=== PATIENT | male | born 1975 | race Caucasian/White ===

== ENCOUNTER 2024-09-08 06:38 | Day surgery (SDC) | payer OTHER, SELFPAY ==
--- OUTSIDE RECORDS SUMMARY | 2024-08-15 14:03 | XMS_ITS | Patient Health Record ---
Author Organization [facility] Address [address] [place] [address] Care Team Providers Care College Athlete Name Role Phone CIRA SANDOVAL Primary Care Provider Unav ailable Adonis Hsieh Unavailable [phone] Allergies No Known Allergies Reason For Referral Referring Provider First Name CIRA Referring Provider Last Name YEIMI Referred Organization [facility] Referred Provider Adonis Hsieh Referred Address [address],[place], [place],[address], Referred Provider Specialty Gastroentero logy General Notes Lynn Sumner 024 03:17:45 PM EDT > requested a [facility] referral for visit with Dr. Hsieh on 11-21-[address] Nunez's office Referral Priority Routine Medications Medication SIG (Take, Route, Fr equency, Duration) Notes Start Date End Date Status NovoLOG 100 UNIT/ML Injection for 30 Active Immunizations Vaccine Route Administration Date Status Comme nts Influenza Unknown 05/01/2023 Administered Social History Tobacco Use: Social History Observation Description Date Details (start date - stop date) Never Smoker NA - NA Tobacco Use/Smoking Question Answer Notes Patient is a nonsmoker Alcohol Screen Question Answer Notes Did you have a drink contain ing alcohol in the past year? Yes How often did you have a dri nk containing alcohol in the past year? 2 to 3 times a week (3 points) How many drinks did you have on a typical day when you were drinking in the past year? 1 or 2 drinks (0 point) Points 3 Interpretation Negative Section Notes: Nonsmoker; no sig alcohol Problems Problem Type SNOMED Code ICD Code Onset Dates Problem Status W/U Status Risk Notes Problem Colon cancer screening (729767537) Colon cancer screening (Z12.11) Active confirmed Problem Pre-procedure evaluation check (488247780) Encounter for other preprocedural examination (Z01.818) Active confirmed Vital Signs Temperature 99.3 degrees Fahrenheit 11/21/2023 Blood pressure diastolic 00 mm Hg 11/21/2023 Height 6 ft 1 in in 11/21/2023 Blood pressure systolic 000 mm Hg 11/21/2023 Weight 203 lbs 11/21/2023 BMI 26.78 kg/m2 11/21/2023 Encounters Encounter Location Date Provider Diagnosis [facility] [address] [place] [address] 11/21/2023 Adonis Hsieh Colon cancer screeni ng Z12.11 and Encounter for other preprocedural examination Z01.818 [facility] [address] [place] [address] 03/28/2024 Adonis Hsieh Assessments Encounter Date Diagnosis (ICD Code) Assessment Notes Treatment Notes Treatment Clinical Notes Section Notes 11/21/2023 Colon cancer screening (ICD-10 - Z12.11) Speak with Dr. Mcmillan regarding adjustment of your Insulin for the day before and the day of the procedure Overall, Matthew appears quite well. Given his age and excellent clinical appearance, I did recommend a colonoscopy for screening purposes. We did review the rationale for that regard to colon cancer prevention. Full consent was obtained for this, including risks of bleeding and perforation. The procedure will be done with monitored anesthesia care. I did advise him to speak with his pickling machine operator regarding adjustment of his insulin pump the day before and on the day of the procedure. Matthew was comfortable with this plan. Thank you again for allowing me to participate in Matthew's care. I shall continue to keep you advised of his progress. 11/21/2023 Encounter for other preprocedural examination (ICD-10 - Z01.818) Overall, Matthew appears quite well. Given his age and excellent clinical appearance, I did recommend a colonoscopy for screening purposes. We did review the rationale for that regard to colon cancer prevention. Full consent was obtained for this, including risks of bleeding and perforation. The procedure will be done with monitored anesthesia care. I did advise him to speak with his pickling machine operator regarding adjustment of his insulin pump the day before and on the day of the procedure. Matthew was comfortable with this plan. Thank you again for allowing me to participate in Matthew's care. I shall continue to keep you advised of his progress. Plan Of Treatment Future Test Test Name Order Date COLONOSCOPY 11/21/2023 Next Appt Details Provider Name:Adonis Hsieh , 09/08/2024 07:30:00 AM, [address] [place] [address] , [place], [place], [phone], Insurance Providers Payer Name Payer Address Payer Phone Subscriber Number Group Number Insured Name Patient Relationship to Insured Coverage Start Date Coverage End Date [employer] [id number] [place]LEJANDRA GILLIAM [phone] [id number] MATTHEW SAAVEDRA Self - patient is the insured Medical (General) History Medical History History ICD Code IDDM--has an Insulin pump Denies [place],DM,CVA,Lung disease,renal dise ase Surgical History Surgery Date(Month/Year) vasectomy 2022
--- OUTSIDE RECORDS SUMMARY | 2024-08-15 14:03 | XMS_ITS ---
Author Organization [facility] Address [address] [place] [address] Care Team Providers Care Chief Transfer And Pumphouse Operator Name Role Phone CIRA SANDOVAL Primary Care Provider Unav ailable Adonis Hsieh [phone] REASON FOR VISIT screening Encounters Encounter Location Date Provider Diagnosis [facility] [address] [place] [phone] 04/07/2024 Adonis Hsieh Plan Of Treatment Next Appt Details Provider Name:Adonis German Jori , 09/08/2024 07:30:00 AM, [address] [place] [address], [phone], Progress Notes * ALEXANDRIAREGINA MATTHEWDOB:1975 (49 yo M)Acc No.[id number]:04/07/2024 COLON WITH MAC Patient:?MATTHEW SAAVEDRA Provider:?Adonis Hsieh MD :1975???Age:49 Y???Sex:Male Cuong e:04/07/2024 Address:[address] [place] [address] , [place], [place] Pcp:PATY MOLINA Subjective: * Chief Complaints: * ???1. Screening. * Medical History:? Objective: * Vitals:? Assessment: Plan: * Treatment: * * The named appointment provid er may or may not be the originator of this progress note, and it is not deemed complete until electronically signed by the appointment provider. Sign off status: Pending * Provider:?Adonis Hsieh MD Date:? 024 Generated for Don fernandes/Lane/Louisitting on:?08/15/2024 02:02 PM EDT
--- OUTSIDE RECORDS SUMMARY | 2024-08-15 14:03 | XMS_ITS ---
Author Organization [facility] Address [address] [place] [address] Care Team Providers Care Director Of Catering Sales Name Role Phone CIRA SANDOVAL Primary Care Provider Unav ailable Adonis Hsieh Unavailable [phone] Allergies No Known Allergies REASON FOR VISIT Patient presents today for a COLON SCREENING Medications Medication SIG (Take, Route, Fr equency, Duration) Notes Start Date End Date Status NovoLOG 100 UNIT/ML Injection for 30 Active Social History Tobacco Use: Social History Observation [...] Status Risk Notes Problem Colon cancer screening (316212892) Colon cancer screening (Z12.11) Active confirmed Problem Pre-procedure evaluation check (776385611) Encounter for other preprocedural examination (Z01.818) Active confirmed Vital Signs Temperature 99.3 degrees Fahrenheit 11/21/19 24 Blood pressure systolic 000 mm Hg 11/21/19 24 Blood pressure diastolic 00 mm Hg 024 Height 6 ft 1 in in 11/21/2023 Weight 203 lbs 11/21/2023 BMI 26.78 kg/m2 11/21/2023 Encounters Encounter Location Date Provider Diagnosis [facility] [address] [place] [address] 11/21/2023 Adonis Hsieh Colon cancer screeni ng Z12.11 and Encounter for other preprocedural examination Z01.818 Assessments Encounter Date Diagnosis (ICD Code) Assessment [...] did advise him to speak with his telephone sales agent regarding adjustment of his insulin pump the [...] did advise him to speak with his telephone sales agent regarding adjustment of his insulin pump the day before and on the day of the procedure. Matthew was comfortable with this plan. Thank you again for allowing me to participate in Matthew's care. I shall continue to keep you advised of his progress. Plan Of Treatment Treatment Notes Assessment Notes Colon cancer screening Speak with Dr. Thong barber regarding adjustment of your Insulin for the day before and the day of the procedure Future Test Test Name Order Date COLONOSCOPY 11/21/2023 Next Appt Details Follow Up: prn, Reason: Provider Name:Adonis Hsieh , 09/08/2024 07:30:00 AM, [address] [facility] , [place], [place], [phone], Progress Notes * EHLE, ERICDOB:1975 (48 yo M)Acc No.[id number]:11/21/2023 Progress Notes Patient:MATTHEW CRAIG Provider:?Adonis Hsieh MD :1975???Age:48 Y???Sex:Male Cuong e:11/21/2023 Address:[address] [place] [address] Pcp:PATY MOLINA Subjective: * Chief Complaints: * ???Patient presents today fo r a COLON SCREENING * HPI: ???incontinence:? I saw Matthew in the office today for evaluation of colorectal cancer screening. ?As you know, Matthew is a 48-year-old male who presently feels well. He enjoys a good appetite, without any significant heartburn or dysphagia. His bowel movements have been regular without any hematochezia or melena. He does describe occasional issues with hemorrhoids but not on a frequent nor problematic basis. He denies abdominal pain, jaundice, nor any unintentional weight loss. He denies any known family history of colon cancer. He has never had a colonoscopy. * ROS:?General/Constitutional:?Change in appetite?denies.?Chills?denies.?Fatigue?denies.?Ophthalmologic:?Comments?all negative.?ENT:?Comments?all negative.?Respiratory:?hemoptysis?denies.?Cough?denies.?Cardiovascular:?Chest pain?denies.?Orthopnea?denies.?Gastrointestinal:?Comments?See HPI for details.?Genitourinary:?Hematuria?denies.?Dysuria?denies.?Musculoskeletal:?Painful joints?denies.?Weakness?denies.?Skin:?Itching?denies.?Rash?denies.?Neurologic:?Headache?denies.?Seizures?denies.?Psychiatric:?Comments?all negative.? * Medical History:? * Surgical History:?vasectomy 2022 * Hospitalization/Major Diagno stic Procedure:?No Hospitalization History. * Family History:?Father: samreen trujillo?Mother: alive.? No family history of colon cancer. * Social History:?Tobacco Use:?Tobacco Use/Smoking?Patient is a?nonsmoker.?Drugs/Alcohol:?Alcohol Screen?Did you have a drink containing alcohol in the past year??Yes,?How often did you have a drink containing alcohol in the past year??2 to 3 times a week (3 points),?How many drinks did you have on a typical day when you were drinking in the past year??1 or 2 drinks (0 point),?Points?3,?Interpretation?Negative.?Miscellaneous:?Marital status: . 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 ???Nonsmoker; no sig alcohol. * Medications:?TakingNovoLOG 1 00 UNIT/ML Solution Injection Medication List reviewed and reconciled with the patientTaking NovoLOG 100 UNIT/ML Solution Injection Medication List reviewed and reconciled with the patient * Allergies:?N.K.D.A.yes[Aller gies Verified] Objective: * Vitals:?Wt: 203 lbs, Ht: 6 f t 1 in, BMI:26.78 Index, BP: 000/00 mm Hg, Temp: 99.3. * Examination: ???General Examination: ?GENERAL APPEARANCE:?pleasant, well nourished, well developed, in no acute distress.?EYES:?sclera non-icteric.?ORAL CAVITY:?mucosa moist.?NECK/THYROID:?no cervical lymphadenopathy, neck supple.?SKIN:?nonjaundiced, no spider angiomata.?HEART:?S1, S2 normal.?LUNGS:?clear to auscultation bilaterally.?ABDOMEN:?normal bowel sounds, no guarding or rigidity, no guarding or rigidity, no masses palpable, soft, nontender, nondistended.?EXTREMITIES:?no edema.?NEUROLOGIC:?alert and oriented.? Assessment: * Assessment: 1.?Encounter for other prepr ocedural examination - Z01.818 (Primary)?2.?Colon cancer screening - Z12.11? Overall, Matthew appears quite well. Given his age and excellent clinical appearance, I did recommend a colonoscopy for screening purposes. We did review the rationale for that regard to colon cancer prevention. Full consent was obtained for this, including risks of bleeding and perforation. The procedure will be done with monitored anesthesia care. I did advise him to speak with his telephone sales agent regarding adjustment of his insulin pump the day before and on the day of the procedure. Matthew was comfortable with this plan. Thank you again for allowing me to participate in Matthew's care. I shall continue to keep you advised of his progress. Plan: * Treatment: Notes: Speak with Dr. Mcmillan regarding adjustment of your Insulin for the day before and the day of the procedure?? * Procedure Codes:?3017F COLOR ECTAL CA SCREEN DOC GPT5944K TOBACCO NON-HTLNP6232 BP SCR NOT PRFRM REC REASON NOS * Preventive Medicine:? ??Counseling:?Care goal follow-up plan:?Above Normal BMI Follow-up?Giving encouragement to exercise,?BMI management provided?Yes.? * Follow Up:?prn * * Sign off status: Completed true * Provider:?Adonis Hsieh MD Date:? 024 Generated for Don fernandes/Lane/Annette on:?08/15/2024 02:02 PM EDT History and Physical Notes * HPI (History of Present Illness) Category Sub-Category Detail Notes Category Not es incontinence I saw Matthew in the office today for evaluation of colorectal cancer screening. As you know, Matthew is a 48-year-old male who presently feels well. He enjoys a good appetite, without any significant heartburn or dysphagia. His bowel movements have been regular without any hematochezia or melena. He does describe occasional issues with hemorrhoids but not on a frequent nor problematic basis. He denies abdominal pain, jaundice, nor any unintentional weight loss. He denies any known family history of colon cancer. He has never had a colonoscopy. Examination Category Sub-Category Detail Notes Category Not es General Examination GENERAL APPEARANCE: pleasant , well nourished, well developed, in no acute distress HEAD: EYES: sclera non-icteric EARS: NOSE: THROAT: NECK/THYROID: no cervical lymphade nopathy, neck supple HEART: S1, S2 normal CHEST: LUNGS: clear to auscultatio n bilaterally ABDOMEN: normal bowel sounds, no guarding or rigidity, no guarding or rigidity, no masses palpable, soft, nontender, nondistended NEUROLOGIC: alert and oriented SKIN: nonjaundiced, no spi nirav angiomata EXTREMITIES: no edema PERIPHERAL PULSES: BACK: BREASTS: MUSCULOSKELETAL: MALE GENITOURINARY: LYMPH NODES: RECTAL EXAM: FEMALE GENITOURINARY: ORAL CAVITY: mucosa moist
--- OUTSIDE RECORDS SUMMARY | 2024-08-15 14:03 | XMS_ITS ---
Author Organization [facility] Address [address] [place] [address] Care Team Providers Care Physiognomist Name Role Phone CIRA SANDOVAL Primary Care Provider Unav ailable Adonis Hsieh Unavailable [phone] REASON FOR VISIT r/s procedure for april 07 Encounters Encounter Location Date Provider Diagnosis [facility] [address] [place] [address] 03/28/2024 Adonis Hsieh Plan Of Treatment Next Appt Details Provider Name:Adonis Hsieh , 09/08/2024 07:30:00 AM, [address] [place] [address] , [place], [place], [phone], Progress Notes * MATTHEW SAAVEDRADOB:1975 (49 yo M)Acc No.[id number]:03/28/2024 Patient:?MATTHEW SAAVEDRA :1975???Age:49 Y???Sex:Male Address:[address] [place] [address] , [place], [address] * true * Date:? Generated for Printi ng/Lane/eTransmitting on:?08/15/2024 02:02 PM EDT
[2024-09-04 12:27] VITALS: BMI 26.8
--- NOTE | 2024-09-05 09:01 | HO.ANESPROP2 ---
HPI - Anesthesia Eval Consult details Narrative: 49yo M for Colonoscopy [facility] Past Medical History Medical History (Updated 03/12/24 @ 12:23 by Rosmery Faulkner, RN) Diabetes Surgical History Surgical History (Updated 09/04/24 @ 12:27 by Rosmery Faulkner, SCOT) Hx of vasectomy Social History Social History (Updated 09/04/24 @ 12:27 by Rosmery Faulkner, SCOT) Household Members: Spouse Patient Tobacco Use Status: Tobacco use Unknown Meds Allergies Allergy/AdvReac Type Severity Reaction Status Date / Time No Known Allergies Allergy Verified 03/12/24 12:22 Home Medications ?Medication ?Instructions ?Recorded ?Confirmed ?Last Taken ?Type insulin aspart U-100 100 unit/mL 03/12/24 Unknown History subcutaneous solution (Novolog U-100 Insulin aspart) Exam Height,Weight and Vital Signs: Height 6 ft 1 in Weight 92.079 kg Assessment and Plan Assessment Anesthesia Assessment: Chart Reviewed
[2024-09-08 07:26] VITALS: BP 125/90; PULSE 78; RESP 16; TEMP 36.8; O2SAT 96; BMI 26.0
[2024-09-08] MEDS: Lactated Ringers 1,000 ML 100 ML IVCONT (07:40)
--- NOTE | 2024-09-08 07:56 | P.CONAN_ITS ---
[facility] Past Medical History Medical History Diabetes Functional capacity: independent ambulation Family History Family history of problems with anesthesia: No Surgical History Surgical History Hx of vasectomy History of Problems with Anesthesia: No Social History Social History Household Members: Spouse Patient Tobacco Use Status: Never used Tobacco Use of substances other than those prescribed or required for medical reasons: No Are you DNR?: No Advance Directives: No Advance Directives Information Provided: Yes Meds Allergies Allergy/AdvReac Type Severity Reaction Status Date / Time No Known Allergies Allergy Verified 09/08/24 07:25 Active Medications: Current Medications Lactated Ringer's (Lr) 1,000 mls @ 100 mls/hr IVCONT .Q10H AN Last Admin: 09/08/24 07:40 Dose: 100 mls/hr Sodium Biphosphate/Sodium Phosphate (Sodium Phosphate,[place]-Dibasic 133 Ml Enema) 133 ml DC ONCE PRN PRN Reason: Poor Colonoscopy Prep Results Home Medications ?Medication ?Instructions ?Recorded ?Confirmed ?Last Taken ?Type insulin aspart U-100 100 unit/mL 60 unit subcut DAILY 03/12/24 09/08/24 Unknown History subcutaneous solution (Novolog U-100 Insulin aspart) insulin glargine 100 unit/mL (3 19 unit subcut DAILY 09/08/24 09/08/24 Unknown History mL) subcutaneous pen (Lantus Solostar U-100 Insulin) meloxicam 15 mg PO DAILY pain 09/08/24 09/08/24 09/06/24 History Exam Height,Weight and Vital Signs: Height 6 ft 1 in Weight 89.358 kg Last Vital Signs Temp 98.2 F 09/08/24 07:26 Pulse 78 09/08/24 07:26 Resp 16 09/08/24 07:26 BP 125/90 H 09/08/24 07:26 Pulse Ox 96 09/08/24 07:26 O2 Del Method Room Air 09/08/24 07:26 Airway Mallampati Class: I TM Dist: >3cm Neck ROM: Full Heart: RRR Lungs: Jossie Assessment and Plan Assessment Anesthesia Assessment: Anesthesia Plan Discussed and Chart Reviewed Final Anesthetic Review Family History of Problems with Anesthesia: No History of Problems with Anesthesia: No NPO: Yes ASA Class: II Final Preanesthetic Review: Meds/Allgs Chart Reviewed, Consent Obtained/Reviewed and Anes Risks/Benef Reviewed Patient Risk: Low Procedure Risk: Low Anesthetic Plan Anesthetic Plan: MAC: Disposition: Standard PACU
[2024-09-08 08:27] VITALS: BP 100/59; PULSE 83; RESP 16; TEMP 36.3; O2SAT 96
--- NOTE | 2024-09-08 08:30 | P.BOP_ITS ---
Brief Operative Note Date of Service: 09/08/24 Pre-op diagnosis: Screening Post-op diagnosis: other (Polyp) Procedure: Colonoscopy to the cecum and TI with bx/removal of polyp Surgeon: Adonis Hsieh MD Anesthesia: MAC Was an Scalper Operator used for this Procedure?: No Estimated blood loss (mL): 2.0 Pathology: other (A. Cecal polyp) Condition: stable Disposition: PACU
[2024-09-08 08:40] VITALS: BP 103/67; PULSE 72; RESP 16; O2SAT 96
[2024-09-08 08:55] VITALS: BP 116/73; PULSE 71; RESP 16; O2SAT 97
--- NOTE | 2024-09-08 09:22 | OP_ITS ---
DATE OF SERVICE: 09/08/2024 SURGEON: Adonis Hsieh MD INDICATIONS: The patient presents for evaluation of colorectal cancer screening. Full consent has been obtained from him for this, including risks of bleeding and perforation. PREOPERATIVE DIAGNOSIS: Colorectal cancer screening. POSTOPERATIVE DIAGNOSIS: Colorectal cancer screening, small colon polyp, occasional sigmoid diverticulosis, and internal hemorrhoids. PROCEDURE PERFORMED: Colonoscopy to the cecum and terminal ileum with biopsy and removal of polyp. ESTIMATED BLOOD LOSS: COMPLICATIONS: ANESTHESIA: Monitored anesthesia care. ASSISTANTS: SPECIMENS: DESCRIPTION OF PROCEDURE: The patient was placed in left lateral decubitus position. The digital rectal exam revealed no abnormalities. The Olympus video pediatric colonoscope was entered into the rectum and advanced easily to the cecum. Once in the cecum, I did identify cecal pouch with appendiceal orifice and a normal-appearing ileocecal valve. The terminal ileum was cannulated and appeared normal. Scope was withdrawn back in the colon. The entire cecum and ileocecal valve appeared normal other than a 3 or 4 mm polyp, which was biopsied and completely removed with cold biopsy forceps. The remainder of the cecum appeared normal. The scope was slowly withdrawn, assessing all mucosal surfaces carefully. Preparation was excellent. I did not visualize any other polyps, colitis, nor angiodysplasia. There were occasional diverticula noted in the sigmoid colon. In the rectum, scope was retroflexed, visualizing internal hemorrhoids, but no other pathology. The rectal mucosa appeared normal. Scope was straightened and withdrawn from the patient. He tolerated the procedure well and was returned to recovery area in stable condition. IMPRESSION: 1. Small colon polyp. 2. Occasional sigmoid diverticulosis. 3. Internal hemorrhoids. PLAN: The results of the pathology will be checked. If this is a tubular adenoma, I would recommend a followup colonoscopy in 5 years. If it is only hyperplastic, I would recommend a followup colonoscopy in 10 years. He will otherwise see me on a p.r.n. basis. MD SACHI Velez/HANSA / [phone]
--- NOTE | 2024-09-08 13:45 | HO.POSTANES ---
Post Anesthesia Evaluation Post Anesthesia Evaluation Date of Service: 09/08/24 Vital Signs: Vital Signs Temp Pulse Resp BP Pulse Ox O2 Del Method 09/08/24 08:55 71 16 116/73 97 Room Air 09/08/24 08:40 72 16 103/67 96 Room Air 09/08/24 08:27 97.4 F 83 16 100/59 L 96 Room Air 09/08/24 07:26 98.2 F 78 16 125/90 H 96 Room Air Anesthesia: Monitored Mental Status: Awake Pain Control: Satisfactory Nausea/Vomiting: None Hydration: Adequate Anesthesia-Related Issues: No Anes. Related Issues
== END 2024-09-08 09:18 | disposition home or self-care (01) ==
PROVIDERS: PCP Registered Nurse; Visit Provider Internal Medicine
PROC: 0DJD8ZZ Inspection of Lower Intestinal Tract, Via Natural or Artificial Opening Endoscopic (ICD-10-PCS; CPT 45378; principal; 2024-09-08 07:30)
DX: Z12.11 Encounter for screening for malignant neoplasm of colon (principal); D12.0 Benign neoplasm of cecum; K57.30 Diverticulosis of large intestine without perforation or abscess without bleeding; K64.8 Other hemorrhoids; E11.9 Type 2 diabetes mellitus without complications; Z79.4 Long term (current) use of insulin; Z96.41 Presence of insulin pump (external) (internal); Z98.52 Vasectomy status
CPT/HCPCS: 45380; 88305; J2003; J2704